=== PATIENT | female | born 1935 | race Caucasian/White ===

== ENCOUNTER 2017-05-17 15:18 | Emergency (ER) | payer OTHER, BC ==
[~2017-05-17] VITALS: Ht 160 cm; Wt 60.2 kg
[~2017-05-17 15:18] MED LIST: ASPIR-LOW81 MG PO; ATIVAN1 MG PO; DOXYCYCLINE HY100 MG PO; FLEXERIL10 MG PO; HYDROCHLOROTH12.5 M3 PO; KEFLEX500 MG PO; LIDODERM 5% P1 PATCH TD; LIPITOR20 MG PO; LOPRESSOR50 MG PO; PREDNISONE1 MG PO; PREMARIN0.625 MG PO; PRILOSEC20 MG PO; TRAMADOL HCL50 MG PO; VITAMIN D32000 UNIT PO
[2017-05-17 16:17] LABS: HEMOGLOBIN 15.3 G/DL (11.9-15.5); MCH 30.8 PG (29.0-34.0); MCHC 35.6 G/DL (30.0-36.0); MCV 86.5 FL (83-99); PLATELET COUNT 234 K/uL (156-360); RBC DIS.WIDTH-CV 12.7 % (11.8-14.6); RBC DIS.WIDTH-SD 40.4 % (39-53); RED BLOOD COUNT 4.97 M/uL (3.80-5.20); WHITE BLOOD COUNT 6.1 K/uL (4.1-10.2)
[2017-05-17 16:24] LABS: CHLORIDE 86 mEq/L (99-109)
[2017-05-17 16:25] LABS: SODIUM 125 mEq/L (136-147)
[2017-05-17 16:26] LABS: GLUCOSE 102 mg/dL (70-99)
[2017-05-17 16:30] LABS: CREATININE 0.7 mg/dL (0.6-1.3); GFR ESTIMATE (CALCULATED) > 59 mL/min/
[2017-05-17 16:31] LABS: UREA NITROGEN (BUN) 9 mg/dL (9-23)
[2017-05-17] MEDS ORDERED: ZITHROMAX Z-PA250 MG PO (17:25)
[2017-05-17] MEDS ORDERED: VENTOLIN HFA18 GM IH (17:25)
[2017-05-17 18:08] VITALS: BP 134/75
== END 2017-05-17 18:09 | disposition home or self-care (01) ==
LOC: EME 15:18
DX: J20.9 Acute bronchitis, unspecified (principal); E87.1 Hypo-osmolality and hyponatremia; I10 Essential (primary) hypertension; E78.5 Hyperlipidemia, unspecified; K58.9 Irritable bowel syndrome, unspecified; Z87.891 Personal history of nicotine dependence; Z79.82 Long term (current) use of aspirin
CPT/HCPCS: 71046; 80048; 85027; 94640; 94664; 99281; 99284

== ENCOUNTER 2017-05-23 19:51 | Inpatient (IN) | payer OTHER, BC ==
[~2017-05-23] VITALS: Ht 160 cm; Wt 59.3 kg
[~2017-05-23 19:51] MED LIST changes: +VENTOLIN HFA18 GM IH; +ZITHROMAX Z-PA250 MG PO
[2017-05-23 21:00] LABS: HEMATOCRIT 37.5 % (36.0-46.0); HEMOGLOBIN 13.7 G/DL (11.9-15.5); MCH 31.4 PG (29.0-34.0); MCHC 36.5 G/DL (30.0-36.0); MCV 85.8 FL (83-99); PLATELET COUNT 298 K/uL (156-360); RBC DIS.WIDTH-CV 12.8 % (11.8-14.6); RBC DIS.WIDTH-SD 40.3 % (39-53); RED BLOOD COUNT 4.37 M/uL (3.80-5.20); WHITE BLOOD COUNT 13.4 K/uL (4.1-10.2)
[2017-05-23 21:13] LABS: CHLORIDE 88 mEq/L (99-109); POTASSIUM 3.2 mEq/L (3.7-5.4); SODIUM 122 mEq/L (136-147)
[2017-05-23 21:15] LABS: GLUCOSE 127 mg/dL (70-99)
[2017-05-23 21:18] LABS: CREATININE 0.7 mg/dL (0.6-1.3); GFR ESTIMATE (CALCULATED) > 59 mL/min/
[2017-05-23 21:19] LABS: UREA NITROGEN (BUN) 7 mg/dL (9-23)
[2017-05-23 21:24] LABS: TROP-I INTERPRETATION NEGATIVE; TROPONIN-I < 0.01 ng/mL (0.0-0.30)
[2017-05-23] MEDS ORDERED: PEPCID40 MG PO (21:36)
[2017-05-23] MEDS ORDERED: TYLENOL REGULA325 MG PO (21:37)
[2017-05-24 01:00] VITALS: BP 176/79
[2017-05-24 02:12] LABS: UR CREATININE CONCENTRATION 40.2 MG/DL
[2017-05-24 03:29] LABS: BASOPHIL (%) 0.6 % (0-1); BASOPHIL COUNT 0.1 K/uL (0-0.1); EOSINOPHIL (%) 0.5 % (0-5); EOSINOPHIL COUNT 0.1 K/uL (0-0.3); HEMATOCRIT 34.4 % (36.0-46.0); HEMOGLOBIN 12.3 G/DL (11.9-15.5); IMMATURE GRANULOCYTE (%) 0.7 % (0.0-0.7); LYMPHOCYTE (%) 11.8 % (15-42); LYMPHOCYTE COUNT 1.4 K/uL (1.0-2.8); MCHC 35.8 G/DL (30.0-36.0); MCV 86.6 FL (83-99); MONOCYTE (%) 11.4 % (3-12); MONOCYTE COUNT 1.4 K/uL (0-0.8); NEUTROPHIL COUNT 9.1 K/uL (1.8-6.4); PLATELET COUNT 289 K/uL (156-360); RBC DIS.WIDTH-SD 41.2 % (39-53); RED BLOOD COUNT 3.97 M/uL (3.80-5.20); WHITE BLOOD COUNT 12.1 K/uL (4.1-10.2)
[2017-05-24 03:42] LABS: CHLORIDE 96 mEq/L (99-109); SODIUM 126 mEq/L (136-147)
[2017-05-24 03:43] LABS: POTASSIUM 4.2 mEq/L (3.7-5.4)
[2017-05-24 03:48] LABS: CREATININE 0.6 mg/dL (0.6-1.3); GFR ESTIMATE (CALCULATED) > 59 mL/min/; GLUCOSE 88 mg/dL (70-99)
[2017-05-24 03:49] LABS: UREA NITROGEN (BUN) 5 mg/dL (9-23)
[2017-05-24 04:04] VITALS: BP 146/78
[2017-05-24 08:00] VITALS: BP 130/63
[2017-05-24 12:00] VITALS: BP 149/67
[2017-05-24 16:00] VITALS: BP 190/90
[2017-05-24 20:01] VITALS: BP 169/75
[2017-05-24 23:18] LABS: C DIFF TOXIN NEGATIVE (NEGATIVE)
[2017-05-25 00:01] VITALS: BP 160/83
[2017-05-25 06:43] LABS: HEMATOCRIT 34.4 % (36.0-46.0); HEMOGLOBIN 11.7 G/DL (11.9-15.5); MCH 30.1 PG (29.0-34.0); MCV 88.4 FL (83-99); PLATELET COUNT 320 K/uL (156-360); RBC DIS.WIDTH-CV 13.6 % (11.8-14.6); RBC DIS.WIDTH-SD 44.2 % (39-53); RED BLOOD COUNT 3.89 M/uL (3.80-5.20); WHITE BLOOD COUNT 9.3 K/uL (4.1-10.2)
[2017-05-25 07:25] LABS: CHLORIDE 102 MEQ/L (99-109); CREATININE 0.7 MG/DL (0.6-1.3); GFR ESTIMATE (CALCULATED) > 59 mL/min/; GLUCOSE 84 mg/dL (70-99); POTASSIUM 3.8 MEQ/L (3.7-5.4); UREA NITROGEN (BUN) 5 mg/dL (9-23)
[2017-05-25 07:27] LABS: SODIUM 134 MEQ/L (136-147)
[2017-05-25 07:37] VITALS: BP 160/78
[2017-05-25] MEDS ORDERED: LISINOPRIL5 MG PO (12:54)
[2017-05-25] MEDS ORDERED: CEFTIN500 MG PO (12:55)
[2017-05-25] MEDS ORDERED: ZITHROMAX250 MG PO (12:55)
== END 2017-05-25 16:00 | disposition home or self-care (01) | DRG 871 ==
LOC: EME 19:51 → EDOF 21:42 → ENRESERV 21:43 → 5SOUTH 22:22 → EDOF 22:22 → ENRESERV 22:23 → 5SOUTH 05-24 00:40
PROVIDERS: Internal Medicine; Nurse Practitioner Family; Student in an Organized Health Care Education/Training Program
DX: A41.9 Sepsis, unspecified organism (principal); J18.9 Pneumonia, unspecified organism; E87.1 Hypo-osmolality and hyponatremia; E87.6 Hypokalemia; J98.01 Acute bronchospasm; I10 Essential (primary) hypertension; E78.5 Hyperlipidemia, unspecified; M19.90 Unspecified osteoarthritis, unspecified site; J31.0 Chronic rhinitis; K58.9 Irritable bowel syndrome, unspecified; R63.1 Polydipsia; H91.90 Unspecified hearing loss, unspecified ear; M35.3 Polymyalgia rheumatica; Z96.652 Presence of left artificial knee joint; F17.210 Nicotine dependence, cigarettes, uncomplicated; Z66 Do not resuscitate; I25.10 Atherosclerotic heart disease of native coronary artery without angina pectoris; Z90.710 Acquired absence of both cervix and uterus; Z88.0 Allergy status to penicillin; Z79.899 Other long term (current) drug therapy
CPT/HCPCS: 71045; 71046; 80048; 82570; 83605; 84300; 84484; 85025; 85027; 87040; 87070; 87205; 87449; 87493; 87502; 87641; 93005; 94640; 94640 76; 99202; 99281; 99284; J0456; J0696; J1644; J2543; J3370; J7030; J7050